=== PATIENT | female | born 1950 | race Hispanic/Latino ===

== ENCOUNTER 2016-06-23 07:21 | Emergency (ER) | payer OTHER ==
[~2016-06-23] VITALS: Ht 154.9 cm; Wt 52.6 kg
--- NOTE | 2016-06-23 07:50 | ED NECK/BACK PAIN COMPLAINT ---
History of Present Illness General Chief Complaint: Low Back Pain/Injury Stated Complaint: LOW BACK PAIN Source: patient Exam Limitations: no limitations Vital Signs & Intake/Output Vital Signs & Intake/Output Vital Signs Date Time Temp Pulse Resp B/P B/P Pulse O2 O2 Flow FiO2 Mean Ox Delivery Rate 06/23 0725 97.1 102 18 110/73 99 Room Air Allergies Coded Allergies: aspirin (Intermediate, HIVES 06/23/16) Reconcile Medications Cyclobenzaprine HCl 10 MG TABLET 1 TAB PO QPM PRN SPASM DO NOT DRIVE WITH THIS MEDICATION Ibuprofen 400 MG TABLET 1 TAB PO TID PRN PAIN Triage Note: PT COMPLAINS OF LOW BACK PAIN THAT STARTED SUNDAY AFTER SHE MOVED A HEAVY EXERCISE MACHINE. ALSO COMPLAINS OF SINUS PRESSURE Triage Nurses Notes Reviewed? yes Onset: Abrupt Duration: day(s): (1) Timing: multiple episodes today Quality/Severity: mild Location: lumbar spine Radiation: none Context: moving furniture Modifying Factors: movement Associated Symptoms: muscle spasm HPI: This is a 65-year-old female who presents here with chief complaint of left low back pain that is gradually started over the past 24 hours. She states 2 days ago she was helping to move some furniture and workout equipment in her home and symptoms started after that. Denies any fall or direct trauma. No difficulty with bowel or bladder. No numbness or weakness in the legs. Past History Travel History Traveled to [place] past 21 day No Medical History Any Pertinent Medical History? 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 No Review of Systems Review of Systems Constitutional: Denies: chills, fever. Eyes: Reports: no symptoms. Ears, Nose, Throat, Mouth: Reports: no symptoms. Respiratory: Denies: cough, short of breath. Cardiovascular: Denies: chest pain, palpitations. Gastrointestinal/Abdominal: Denies: abdominal pain. Musculoskeletal: Reports: muscle pain, muscle stiffness. Skin: Reports: no symptoms. Neurological/Psychological: Denies: numbness, paresthesia, weakness. All Other Systems: Reviewed and Negative Physical Exam Physical Exam General Appearance: well developed/nourished, mild distress Head: atraumatic Eyes: Bilateral: PERRL, EOMI. Ears, Nose, Throat, Mouth: hearing grossly normal Neck: normal inspection, supple, full range of motion Respiratory: normal breath sounds Cardiovascular: regular rate/rhythm Gastrointestinal: soft, non-tender Back: normal inspection Extremities: normal range of motion Straight Leg Raising: Right: Negative. Left: Negative. Neurologic/Psych: awake, alert, oriented x 3, normal mood/affect Skin: intact, normal color, warm/dry Progress Differential Diagnosis: herniated disc, myofascial strain, sciatica, T/L spine injury Plan of Care: Orders Procedure Date/time Status XRY-LUMBOSACRAL SPINE 4 VIEWS 06/24 799 Active Current Medications Sig/Fartun Start time Last Medication Dose Stop Time Status Admin Ibuprofen 400 MG ONCE ONE 06/24 799 UNVr (Motrin) 06/23 800 l/spine xray ordered. motrin ordered. (EYAL LAY,HARRIET) Diagnostic Imaging: Viewed by Me: Radiology Read. Discussed w/RAD: Radiology Read. Radiology Impression: PATIENT: LALA RODRIGUEZ PRESENT AGE: 65 PATIENT ACCOUNT NO: [id number] : 50 LOCATION: [facility] ORDERING PHYSICIAN: HARRIET BIRCH MD SERVICE DATE: 06/23/16 EXAM TYPE: RAD - XRY -LUMBOSACRAL SPINE 4 VIEWS EXAMINATION: XR LUMBOSACRAL SPINE CLINICAL INFORMATION: Possible scoliosis. Left lower back pain. COMPARISON: X-rays 2014. TECHNIQUE: AP, lateral and coned AP and lateral views of the lumbosacral spine were obtained. FINDINGS: The study redemonstrates a mild levoscoliosis. Intervertebral disc heights are maintained. The vertebral bodies of normal contour. No acute fractures are demonstrated. There are mild facet arthropathic changes at L5-S1. There is minimal multilevel marginal osteophytosis. The visualized sacrum is unremarkable. The paravertebral soft tissues appear normal. IMPRESSION: 1. There is a mild levoscoliosis. 2. There are mild facet arthropathic changes at L5-S1. 3. There are no acute fractures or subluxations. DICTATED BY: ROCK MD,KRYSTYNA DATE/TIME DICTATED:06/23/16825 OFFICE ADMIN :JARETH DATE/TIME TRANSCRIBED:06/23/16825 CONFIDENTIAL, DO NOT COPY WITHOUT APPROPRIATE AUTHORIZATION. <Electronically signed in Other Vendor System> SIGNED BY: KRYSTYNA BROUSSARD MD 06/23/1632 Departure Departure Time of Disposition: 854 Disposition: HOME OR SELF CARE Condition: Stable Clinical Impression Primary Impression: Acute low back pain Secondary Impressions: Dextroscoliosis Referrals: SALIMA LAY,FINESSE Bolton (PCP/Family) Additional Instructions: Take tylenol and the flexeril as directed. Follow up with your primary care doctor in the office. Return as needed. Departure Forms: Customer Survey General Discharge Information Prescriptions: Current Visit Scripts Ibuprofen 1 TAB PO TID PRN PAIN #30 TAB Cyclobenzaprine HCl 1 TAB PO QPM PRN SPASM #[address] WITH THIS MEDICATION
[2016-06-23] MEDS ORDERED: IBUPROFEN400 M1 PO (08:00)
[2016-06-23] MEDS ORDERED: CYCLOBENZAPRINE10 M1 PO (08:00)
--- NOTE | 2016-06-23 08:32 | RADIOLOGY REPORT ---
EXAMINATION: XR LUMBOSACRAL SPINE CLINICAL INFORMATION: Possible scoliosis. Left lower back pain. COMPARISON: X-rays 04/02/2014. TECHNIQUE: AP, lateral and coned AP and lateral views of the lumbosacral spine were obtained. FINDINGS: The study redemonstrates a mild levoscoliosis. Intervertebral disc heights are maintained. The vertebral bodies of normal contour. No acute fractures are demonstrated. There are mild facet arthropathic changes at L5-S1. There is minimal multilevel marginal osteophytosis. The visualized sacrum is unremarkable. The paravertebral soft tissues appear normal. IMPRESSION: 1. There is a mild levoscoliosis. 2. There are mild facet arthropathic changes at L5-S1. 3. There are no acute fractures or subluxations.
[2016-06-23 09:11] VITALS: BP 118/70
== END 2016-06-23 09:12 ==
LOC: ERH 07:21
DX: M54.5 Low back pain (principal); M41.9 Scoliosis, unspecified
CPT/HCPCS: 72110